=== PATIENT | female | born 1990 | race Caucasian/White ===

== ENCOUNTER 2020-11-04 12:30 | Emergency (ER) | payer BC ==
[~2020-11-04] VITALS: Ht 160 cm; Wt 86.2 kg
[2020-11-04] MEDS ORDERED: SERTRALINE HCL100 MG PO (12:43)
[2020-11-04 14:07] LABS: ABSOLUTE EOSINOPHILS 0.1 thou/uL (0.0-0.7); ABSOLUTE LYMPHOCYTES 1.8 thou/uL (0.8-5.3); ABSOLUTE MONOCYTES 0.8 thou/uL (0.0-1.2); ABSOLUTE NEUTROPHILS 3.2 thou/uL (1.6-8.1); BASOPHILS 0.3 %; EOSINOPHILS 1.6 %; HEMATOCRIT 39.9 % (37.0-47.0); HEMOGLOBIN 13.4 gm/dL (12.0-15.0); LYMPHOCYTES 29.9 %; MCH 28.8 pg (26.0-34.0); MCHC 33.6 g/dL (28.0-37.0); MCV 85.5 fL (80.0-100.0); MONOCYTES 13.6 %; MPV 7.5 fl. (7.2-11.1); NUCLEATED RBCS 0 /100WBC; PLATELET COUNT* 412 thou/uL (150-400); POLYS 54.6 %; RBC 4.67 mil/uL (4.20-5.00); RDW-CV 13.5 % (10.5-14.5); WBC 5.8 thou/uL (4.0-11.0)
[2020-11-04 14:11] LABS: CALCIUM 8.5 mg/dL (8.5-10.1); CREATININE 0.5 mg/dL (0.6-1.3)
[2020-11-04 15:27] VITALS: BP 120/70
== END 2020-11-04 15:27 | disposition home or self-care (01) ==
LOC: M.ERS 12:30
PROVIDERS: Emergency Medicine Emergency Medical Services
DX: J02.9 Acute pharyngitis, unspecified (principal)

== ENCOUNTER 2021-11-07 20:16 | Emergency (ER) | payer BC ==
[~2021-11-07] VITALS: Ht 160 cm; Wt 88.5 kg
[~2021-11-07 20:16] MED LIST: SERTRALINE HCL100 MG PO
[2021-11-07] MEDS ORDERED: MILI 0.25-0.031 EACH PO (20:24)
[2021-11-07 20:39] LABS: URINE BILIRUBIN NEGATIVE (Negative); URINE BLOOD 3+ (Negative); URINE COLOR YELLOW; URINE GLUCOSE-RANDOM NEGATIVE (Negative); URINE KETONES NEGATIVE (Negative); URINE LEUKOCYTES-REFLEX 1+ (Negative); URINE NITRITE-REFLEX NEGATIVE (Negative); URINE PROTEIN 2+ (Negative); URINE SPECIFIC GRAVITY 1.025 (1.005-1.030); URINE UROBILINOGEN 0.2 E.U./dl (0.2-1.0)
[2021-11-07 20:41] LABS: URINE CLARITY CLOUDY
[2021-11-07 20:44] LABS: SQUAMOUS 0-3 Few /LPF (0-3); URINE WBC-REFLEX 6-15 Few /HPF (0-5)
[2021-11-07 20:45] LABS: BACTERIA-REFLEX 1-9 Few /HPF (None Seen); CASTS None Seen /LPF (None Seen); CRYSTALS None Seen /LPF (None Seen); URINE RBC 3-10 Few /HPF (0-2)
[2021-11-07] MEDS ORDERED: ZOFRAN ODT4 MG PO (22:11)
[2021-11-07] MEDS ORDERED: HYDROCODON-ACE1 EAC7 PO (22:11)
[2021-11-07] MEDS ORDERED: AUGMENTIN 500-1 EACH PO (22:11)
[2021-11-07 22:40] VITALS: BP 129/87
[2021-11-08] MEDS ORDERED: HYDROCODON-ACE1 EAC7 PO (09:01)
== END 2021-11-07 22:40 | disposition home or self-care (01) ==
LOC: M.ERS 20:16
PROVIDERS: Nurse Practitioner Family
DX: N39.0 Urinary tract infection, site not specified (principal); F32.9 Major depressive disorder, single episode, unspecified; F41.9 Anxiety disorder, unspecified; Z79.899 Other long term (current) drug therapy